=== PATIENT | female | born 1985 | race Caucasian/White ===

== ENCOUNTER 2017-10-08 19:48 | Emergency (ER) | payer OTHER ==
[2017-10-08 20:05] VITALS: BP 172/96; PULSE 54; RESP 18; TEMP 99.3
--- NOTE | 2017-10-08 20:32 | ED ---
ENT HPI - General Chief complaint: Dental/Oral Stated complaint: tooth ache Time Seen by Provider: 10/08/17 20:11 Source: patient, RN notes reviewed, old records reviewed Mode of arrival: ambulatory Limitations: no limitations - History of Present Illness Initial comments: Patient is a 32 year old female with CC of dental pain for one week. She reports fractured tooth 14. She reports occasional foul taste. Patient denies any swelling of the face. She denies any fever or chills. She reports that she has a dentist appointment on Monday. She reports the pain was severe, and she feels that she needed to be seen sooner. - Related Data Previous Rx's Medication Instructions Recorded Acetaminophen-Codeine 300-30mg 1 tab PO Q8H PRN #12 tablet 10/08/17 [Tylenol #3] Ibuprofen [Motrin] 600 mg PO Q8HR PRN #20 tab 10/08/17 Penicillin V Potassium [Pen Vee K] 500 mg PO QID #40 tablet 10/08/17 Allergies Allergy/AdvReac Type Severity Reaction Status Date / Time No Known Allergies Allergy Verified 10/08/17 20:05 Review of Systems ROS Statement: Those systems with pertinent positive or pertinent negative responses have been documented in the HPI. ROS Other: All systems not noted in ROS Statement are negative. Past Medical History Past Medical History: No Reported History History of Any Multi-Drug Resistant Organisms: None Reported Past Surgical History: Section, Tonsillectomy Past Psychological History: No Psychological Hx Reported Smoking Status: Current every day smoker Past Alcohol Use History: Occasional Past Drug Use History: Marijuana General Exam Limitations: no limitations General appearance: alert, in no apparent distress Head exam: Present: atraumatic, normocephalic, normal inspection Eye exam: Present: normal appearance, PERRL, EOMI. Absent: scleral icterus, conjunctival injection, periorbital swelling ENT exam: Present: normal exam, mucous membranes moist, TM's normal bilaterally. Absent: normal oropharynx (broken teeth, multiple dental carries. Patient has frctured tooth 14. Surrounding erythema of gum. ) Neck exam: Present: normal inspection. Absent: tenderness, meningismus, lymphadenopathy Respiratory exam: Present: normal lung sounds bilaterally. Absent: respiratory distress, wheezes, rales, rhonchi, stridor Cardiovascular Exam: Present: regular rate, normal rhythm, normal heart sounds. Absent: systolic murmur, diastolic murmur, rubs, gallop, clicks Psychiatric exam: Present: normal affect, normal mood Skin exam: Present: warm, dry, intact, normal color. Absent: rash Course Vital Signs 10/08/17 20:02 Temperature 99.3 F Pulse Rate 54 L Respiratory 18 Rate Blood Pressure 172/96 O2 Sat by Pulse 99 Oximetry Medical Decision Making - Medical Decision Making 32-year-old female chief complaint of left upper dental pain for one week. She has a dentist appointment on Monday. She states that she's noticed some swelling around the tooth as well as a foul taste in her mouth occasionally. She has a fractured tooth #14. She is some surrounding erythema. We'll start the patient on Pen-Vee K for infected tooth as well as short course of pain medicine. Discussed using teabags and alternating Motrin and Tylenol. Patient agrees to treatment plan will comply. Return parameters were discussed. Disposition Clinical Impression: Pain, dental Disposition: HOME SELF-CARE Condition: Good Instructions: Dental Caries (ED), Toothache (ED) Additional Instructions: [facility] [place] [id number] [employer] [place] [address] [phone] (existing clients only) For new clients: [phone] 1st consult: $50 (includes Xrays) Usually 30% less then private dentist for visits after. [employer] Have to pay $50 for Xrays anmd rest is covered. [phone] Prescriptions: Acetaminophen-Codeine 300-30mg [Tylenol #3] 1 tab PO Q8H PRN #12 tablet PRN Reason: Pain Ibuprofen [Motrin] 600 mg PO Q8HR PRN #20 tab PRN Reason: Pain Penicillin V Potassium [Pen Vee K] 500 mg PO QID #40 tablet Referrals: None,Stated [Primary Care Provider] - 1-2 days Time of Disposition: 20:29
== END 2017-10-08 20:38 | disposition home or self-care (01) ==
LOC: EC 19:48
DX: K08.89 Other specified disorders of teeth and supporting structures (principal); F17.200 Nicotine dependence, unspecified, uncomplicated
CPT/HCPCS: 99283